=== PATIENT | male | born 1965 | race American Indian/Alaskan Native ===

== ENCOUNTER 2017-06-13 09:46 | Emergency (ER) | payer MEDICARE ==
[2017-06-13 10:50] VITALS: BP 153/101
--- NOTE | 2017-06-13 12:09 | Emergency Department Report ---
Abscess Boil HPI - HPI Chief Complaint: Skin/Abscess/Foreign Body Stated Complaint: HEAD ABSCESS Time Seen by Provider: 06/13/17 11:50 Duration: 3 Days Location: Head (patient has swelling and firmness and pain to the posterior scalp at the base of the neck on the right side within the hairline) Severity: Moderate History: Yes Pain, No Fever, No Purulent Drainage, No Numbness, No Foreign Body , No Previous History, No Insect Bite HPI: Patient is a 51-year-old [place] male who is presenting with most likely cellulitis to the back of the neck patient has a new [place] thinks this may have come from getting his haircut Home Medications: Previous Rx's Medication Instructions Recorded Last Taken Type Clindamycin [Clindamycin CAP] 300 mg PO Q8H #21 cap 06/13/17 Unknown Rx HYDROcodone/ACETAMINOPHEN [[place] 1 each PO Q6HR #12 tablet 06/13/17 Unknown Rx 5-325 Tablet] Ibuprofen [Motrin] 800 mg PO Q8HR PRN #20 tablet 06/13/17 Unknown Rx ED Review of Systems ROS: Stated complaint: HEAD ABSCESS Other details as noted in HPI Constitutional: denies: chills, fever Eyes: denies: eye pain, eye discharge, vision change ENT: denies: ear pain, throat pain Respiratory: denies: cough, shortness of breath, wheezing Cardiovascular: denies: chest pain, palpitations Endocrine: no symptoms reported Gastrointestinal: denies: abdominal pain, nausea, diarrhea Genitourinary: denies: urgency, dysuria Musculoskeletal: denies: back pain, joint swelling, arthralgia Skin: denies: rash, lesions Neurological: denies: headache, weakness, paresthesias Psychiatric: denies: anxiety, depression Hematological/Lymphatic: denies: easy bleeding, easy bruising ED Past Medical Hx - Past Medical History Hx Hypertension: Yes - Medications Home Medications: Home Medications Medication Instructions Recorded Confirmed Last Taken Type Clindamycin [Clindamycin CAP] 300 mg PO Q8H #21 cap 06/13/17 Unknown Rx HYDROcodone/ACETAMINOPHEN [[place] 1 each PO Q6HR #12 tablet 06/13/17 Unknown Rx 5-325 Tablet] Ibuprofen [Motrin] 800 mg PO Q8HR PRN #20 tablet 06/13/17 Unknown Rx ED Abscess Boil Physical Exam - Exam General: Vital signs noted. No distress. Alert and acting appropriately. Front/Back of Body, Lg (Color): 1 - Erythema or warmth and induration with no central fluctuance to the right base of the neck Size: 3 cm Exam: Yes Tenderness, Yes Surrounding Cellulites/Erythema, Yes Normal Circulation, No Fluctuance, No Lymphangitis, No Crepitation, No Heart Murmur, No Normal Neurologic Exam Exam: Patient's lung exam clear to auscultation bilaterally heart tones were normal as well patient is no acute distress I & D Note - I & D Note I & D Note: Patient does not need I&D performed at this time ED Course Vital Signs 06/13/17 10:45 Temperature 98.2 F Pulse Rate 87 Respiratory 18 Rate Blood Pressure 153/101 O2 Sat by Pulse 98 Oximetry Critical care attestation.: If time is entered above; I have spent that time in minutes in the direct care of this critically ill patient, excluding procedure time. ED Disposition Clinical Impression: Folliculitis Cellulitis Qualifiers: Site of cellulitis: head Qualified Code(s): L03.811 - Cellulitis of head [any part, except face] Disposition: DC-01 TO HOME OR SELFCARE Is pt being admited?: No Does the pt Need Aspirin: No Condition: Stable Instructions: Cellulitis (ED) Prescriptions: Clindamycin [Clindamycin CAP] 300 mg PO Q8H #21 cap HYDROcodone/ACETAMINOPHEN [[place] 5-325 Tablet] 1 each PO Q6HR #12 tablet Ibuprofen [Motrin] 800 mg PO Q8HR PRN #20 tablet PRN Reason: Pain Referrals: PRIMARY CARE,MD [Primary Care Provider] - 3-5 Days
== END 2017-06-13 12:16 | disposition home or self-care (01) ==
LOC: ED 09:46
DX: L03.811 Cellulitis of head [any part, except face] (principal); L73.9 Follicular disorder, unspecified; I10 Essential (primary) hypertension
CPT/HCPCS: 99282